=== PATIENT | male | born 1955 | race Caucasian/White ===

== ENCOUNTER 2021-09-18 07:27 | Inpatient (IN) | payer MEDICARE, OTHER ==
[2021-09-18] MEDS ORDERED: niCARdipine 25 MG/10 ML VIAL ONE (07:38)
[2021-09-18] MEDS ORDERED: Rocuronium Bromide 10 MG/ML (10ML VIAL) ONE (07:38)
[2021-09-18] MEDS ORDERED: Mannitol 12.5 GM/50 ML ONE (07:52)
[2021-09-18] MEDS ORDERED: manNITOL 20% 500 ML ONE (07:52)
[2021-09-18 07:56] LABS: #Basophils 0.1 thou/uL (0.0-0.2); #Eosinphils 0.1 thou/uL (0.0-0.7); #Lymphocytes 2.1 thou/uL (1.20-3.40); #Monocytes 0.5 thou/uL (0.11-0.59); #Neutrophils 9.4 thou/uL (1.40-6.50); %Basophils 0.8 % (0.0-1.0); %Lymphocytes 17.4 % (21.0-51.0); %Neutrophils 76.9 % (42.0-75.0); Mean Corpuscular HGB CONC 33.8 g/dL (32.0-36.0); Mean Corpuscular Hemoglobin 31.7 pg (27.0-31.0); Mean Corpuscular Volume 93.9 fL (78.0-98.0); Mean Platelet Volume 6.4 fL (7.4-10.4); Platelet Count 265 thou/uL (130-400); RBC Distribution Width 12.7 % (11.5-14.5); Red Blood Cell (RBC) Count 4.72 mill/uL (4.70-6.10); White Blood Cell (WBC) Count 12.2 thou/uL (4.8-10.8)
[2021-09-18] MEDS ORDERED: Midazolam HCl 5 mg/ml Vial ONE (07:59)
[2021-09-18] MEDS ORDERED: Fentanyl CADD 100 ML IV SCH ×2 (08:00→12:45)
[2021-09-18] MEDS ORDERED: ISOVUE-370 76%-LOCM 1 ML ONE ×2 (08:00)
[2021-09-18 08:08] LABS: PTT 27.5 sec (22.9-36.1); Prothrombin Time 13.3 sec (12.0-14.7)
[2021-09-18 08:10] LABS: Bilirubin Negative (Negative); Blood, Urine Negative (Negative); Clarity Clear (Clear); Glucose, Urine (Dipstick) 100 mg/dL (Negative); Ketone, Urine 10 mg/dL (Negative); Leukocyte Negative Leu/uL (Negative); Nitrite Negative (Negative); Protein, Urine (Dipstick) Negative (Neg-Trace); Urobilinogen Normal mg/dL (Less than 2); pH, Urine 5.5 (5.0-9.0)
[2021-09-18 08:16] LABS: Acetaminophen Less than 10.0 mcg/mL (10.0-30.0); Alcohol Less than 10 mg/dL (Less than 10); Lipase 67 U/L (8-78); Salicylate Less than 8.0 mg/dL (15.0-30.0)
[2021-09-18 08:19] LABS: Amphetamine Not Detected (NotDetected); Barbiturates Screen Not Detected (NotDetected); Benzodiazepine Screen Not Detected (NotDetected); Cocaine Metabolite Screen Not Detected (NotDetected); Methadone Not Detected (NotDetected); Methamphetamine Not Detected (NotDetected); Opiate Screen Not Detected (NotDetected); Oxycodone Screen Not Detected (NotDetected); Phencyclidine (PCP) Not Detected (NotDetected); THC/Cannabinoid Screen Not Detected (NotDetected); Tricyclic Screen Not Detected (NotDetected)
[2021-09-18] MEDS ORDERED: Ondansetron PF 4 MG/2 ML Vial IVP PRN (08:23)
[2021-09-18] MEDS ORDERED: Morphine 2 MG/ML VIAL SLOW IVP PRN (08:23)
[2021-09-18 08:26] LABS: Actual Bicarbonate (HCO3a) 24.2 mEq/L (22-28); Analyzer IN Cardio ER; Base Excess (BEa) -2.5 mEq/L (-2.0 to +3.0); Calcium, Ionized (arterial) 1.17 mmol/L (1.12-1.30); Potassium - ABG Lab 3.07 mmol/L (3.70-5.30); pH, Arterial 7.31 (7.35-7.45)
[2021-09-18 08:29] LABS: O2 Tension (PaO2), arterial 58.6 mmHg (> 80.0); Puncture Site RRA
[2021-09-18] MEDS ORDERED: niCARdipine 40MG In NaCl 40 MG/200 ML BAG IVPB SCH (08:30)
[2021-09-18] MEDS ORDERED: Mannitol 12.5 GM/50 ML SLOW IVP SCH (08:30)
[2021-09-18] MEDS ORDERED: ceFAZolin 2 GM/Dextrose 50 ML 2 GM in Premix Bag 1 BAG IVPB SCH (08:30)
[2021-09-18 08:31] LABS: ALT (SGPT) 19 U/L (8-55); AST (SGOT) 30 U/L (5-34); Albumin 4.4 g/dL (3.4-4.8); Alkaline Phosphatase 70 U/L (40-110); Anion Gap 19 mmol/L (10-20); BUN (Urea Nitrogen) 21 mg/dL (8.4-25.7); Bilirubin, Total 1.6 mg/dL (0.2-1.2); CK (CPK) 215 U/L (30-200); Calc. Creatinine Clearance 0 mL/min (70-130); Calcium 9.5 mg/dL (7.8-10.44); Carbon Dioxide 19 mmol/L (23-31); Chloride 105 mmol/L (98-107); Estimated GFR 97; Globulin 2.6 g/dL (2.4-3.5); Glucose 198 mg/dL (80-115); Potassium 3.5 mmol/L (3.5-5.1); Sodium 139 mmol/L (136-145)
[2021-09-18] MEDS ORDERED: Lidocaine 1% w/Epinephrine 1:100K 20 ML VIAL ONE (08:38)
[2021-09-18] MEDS ORDERED: Thrombin 5000 UNITS/5 ML VIAL ONE (08:38)
[2021-09-18] MEDS ORDERED: niCARdipine 25 MG in Sodium Chloride 0.9% 250 ML 250 ML IVPB SCH (09:00)
[2021-09-18] MEDS ORDERED: Dexamethasone 20 MG/5 ML VIAL ONE (09:29)
[2021-09-18] MEDS ORDERED: ePHEDrine 50 MG/ML VIAL ONE (09:29)
[2021-09-18] MEDS ORDERED: Phenylephrine 10 MG/ML VIAL ONE (09:29)
[2021-09-18] MEDS ORDERED: PROPOFOL 200 MG/20 ML VIAL ONE (09:29)
[2021-09-18] MEDS ORDERED: Vecuronium 10 MG VIAL ONE ×2 (09:29)
[2021-09-18 09:40] LABS: SARS-CoV-2 NAA Rapid Test Not Detected (NotDetected)
[2021-09-18] MEDS ORDERED: levETIRAcetam 500 MG/5 ML VIAL ONE (10:01)
[2021-09-18] MEDS ORDERED: fentaNYL Citrate/PF 100 MCG/2 ML SYRINGE ONE ×2 (10:04→11:05)
[2021-09-18] MEDS ORDERED: Propofol 1,000 MG/100 ML VIAL IV PRN ×2 (12:13→12:45)
[2021-09-18] MEDS ORDERED: Fentanyl 100 MCG/2 ML VIAL SLOW IVP PRN (12:14)
[2021-09-18] MEDS ORDERED: Propofol 1,000 MG/100 ML VIAL IV ONE (12:15)
[2021-09-18] MEDS ORDERED: Ventilator Sedation Protocol 1 EACH FS ONE (12:16)
[2021-09-18] MEDS: CEFAZOLIN 2 GM in Sodium Chloride 0.9% 100 ML IVPB SCH ×2 (12:25→17:11)
[2021-09-18] MEDS: Sodium Chloride 0.9% 1,000 ML IV SCH (12:25)
[2021-09-18] MEDS ORDERED: Midazolam HCl 2 mg/2 ml Vial SLOW IVP PRN (12:31)
[2021-09-18] MEDS ORDERED: Fentanyl BOLUS 250 ML IVPB PRN (12:45)
[2021-09-18] MEDS ORDERED: DISCONTINUE PREVIOUS NARCOTIC PAIN MEDICATIONS AND BENZODIAZEPINES FS SCH (12:45)
[2021-09-18] MEDS ORDERED: Morphine 4 MG/ML VIAL SLOW IVP PRN (12:45)
[2021-09-18] MEDS ORDERED: Propofol BOLUS 1,000 MG/100 ML VIAL IV PRN (12:45)
[2021-09-18 13:08] VITALS: BMI 25.0
[2021-09-18] MEDS ORDERED: HumaLOG 300 UNITS/3 ML VIAL SC PRN ×2 (13:20)
[2021-09-18] MEDS ORDERED: Dextrose 5% in Water 1,000 ML IV PRN (13:20)
[2021-09-18] MEDS ORDERED: Dextrose 50% Abboject 50 ML SYRINGE SLOW IVP PRN (13:20)
[2021-09-18 15:14] LABS: Actual Bicarbonate (HCO3a) 22.4 mEq/L (22-28); Base Excess (BEa) -1.5 mEq/L (-2.0 to +3.0); CO2 Tension 35.7 mmHg (35.0-45.0); Calcium, Ionized (arterial) 1.13 mmol/L (1.12-1.30); Hemoglobin (Hb) 15.1 g/dL (14.0-18.0); O2 Tension (PaO2), arterial 70.2 mmHg (> 80.0); Potassium - ABG Lab 4.05 mmol/L (3.70-5.30); pH, Arterial 7.42 (7.35-7.45)
[2021-09-18 15:15] LABS: Puncture Site LBA
[2021-09-18 15:16] LABS: ALV-art Gradient 170.375 mmHg (0-20)
[2021-09-18 18:33] LABS: Anion Gap 13 mmol/L (10-20); BUN (Urea Nitrogen) 16 mg/dL (8.4-25.7); Calc. Creatinine Clearance 94 mL/min (70-130); Calcium 8.9 mg/dL (7.8-10.44); Carbon Dioxide 27 mmol/L (23-31); Chloride 104 mmol/L (98-107); Estimated GFR 95; Glucose 149 mg/dL (80-115); Magnesium 1.7 mg/dL (1.6-2.6); Potassium 4.1 mmol/L (3.5-5.1); Sodium 140 mmol/L (136-145)
[2021-09-18] MEDS: Famotidine/PF 20 mg/2ml Vial SLOW IVP SCH (20:21)
[2021-09-18] MEDS: levETIRAcetam 500 MG/5 ML VIAL SLOW IVP SCH (20:21)
[2021-09-19] MEDS: CEFAZOLIN 2 GM in Sodium Chloride 0.9% 100 ML IVPB SCH (02:13)
[2021-09-19] MEDS: Sodium Chloride 0.9% 1,000 ML IV SCH (05:16)
[2021-09-19 05:30] LABS: #Lymphocytes 0.7 thou/uL (1.20-3.40); #Monocytes 0.8 thou/uL (0.11-0.59); #Neutrophils 12.7 thou/uL (1.40-6.50); %Eosinophils 0.1 % (0.0-10.0); %Lymphocytes 4.7 % (21.0-51.0); %Monocytes 5.6 % (0.0-10.0); %Neutrophils 89.6 % (42.0-75.0); Hemoglobin 13.7 g/dL (14.0-18.0); Mean Corpuscular HGB CONC 32.5 g/dL (32.0-36.0); Mean Corpuscular Hemoglobin 30.8 pg (27.0-31.0); Mean Corpuscular Volume 94.7 fL (78.0-98.0); Mean Platelet Volume 6.7 fL (7.4-10.4); Platelet Count 217 thou/uL (130-400); RBC Distribution Width 13.2 % (11.5-14.5); Red Blood Cell (RBC) Count 4.47 mill/uL (4.70-6.10); White Blood Cell (WBC) Count 14.2 thou/uL (4.8-10.8)
[2021-09-19 06:07] LABS: Hemoglobin A1c 5.5 % (4.0-6.0)
[2021-09-19 06:42] LABS: Anion Gap 14 mmol/L (10-20); BUN (Urea Nitrogen) 20 mg/dL (8.4-25.7); Calc. Creatinine Clearance 93 mL/min (70-130); Calcium 8.9 mg/dL (7.8-10.44); Carbon Dioxide 25 mmol/L (23-31); Cardiac Risk 3.5 (Less than 4.5); Chloride 105 mmol/L (98-107); Cholesterol 188 mg/dl (< 200 Desired); Estimated GFR 94; Glucose 144 mg/dL (80-115); HDL Cholesterol 54 mg/dL (>60 Neg Risk); LDL Cholesterol, Calculated 124 mg/dL; Potassium 3.8 mmol/L (3.5-5.1); Sodium 140 mmol/L (136-145); Triglycerides 51 mg/dL (Less than 150)
[2021-09-19 07:05] LABS: Thyroid Stimulating Hormone 0.77 uIU/mL (0.35-4.94)
[2021-09-19] MEDS: Famotidine/PF 20 mg/2ml Vial SLOW IVP SCH (09:15)
[2021-09-19] MEDS: levETIRAcetam 500 MG/5 ML VIAL SLOW IVP SCH (09:15)
[2021-09-19] MEDS: Midazolam HCl 2 mg/2 ml Vial SLOW IVP PRN ×2 (10:26→12:49)
[2021-09-19] MEDS: Morphine 2 MG/ML VIAL SLOW IVP PRN ×3 (10:26→21:48)
[2021-09-20] MEDS: Morphine 2 MG/ML VIAL SLOW IVP PRN ×4 (02:36→11:26)
[2021-09-20] MEDS: Acetaminophen 650 MG Suppository PR PRN ×2 (09:43→20:30)
[2021-09-20 20:30] VITALS: TEMP 102.7
[2021-09-20 20:33] VITALS: BP 106/68
== END 2021-09-20 23:05 | disposition expired | DRG 23 ==
LOC: ERS 07:27 → SDC 09:29 → CCU 11:30 → T4-A 09-19 17:45
PROVIDERS: ADMIT Surgery; ATTEND Surgery
PROC: 00C70ZZ Extirpation of Matter from Cerebral Hemisphere, Open Approach (ICD-10-PCS; principal; 2021-09-18)
PROC: 5A1945Z Respiratory Ventilation, 24-96 Consecutive Hours (ICD-10-PCS; 2021-09-18)
PROC: 02HV33Z Insertion of Infusion Device into Superior Vena Cava, Percutaneous Approach (ICD-10-PCS; 2021-09-18)
PROC: 0BH18EZ Insertion of Endotracheal Airway into Trachea, Via Natural or Artificial Opening Endoscopic (ICD-10-PCS; 2021-09-18)
PROC: 0D9670Z Drainage of Stomach with Drainage Device, Via Natural or Artificial Opening (ICD-10-PCS; 2021-09-18)
DX: I61.1 Nontraumatic intracerebral hemorrhage in hemisphere, cortical (principal); G93.5 Compression of brain; J96.01 Acute respiratory failure with hypoxia; J96.02 Acute respiratory failure with hypercapnia; R47.01 Aphasia; G81.14 Spastic hemiplegia affecting left nondominant side; Z66 Do not resuscitate; Z51.5 Encounter for palliative care; Z20.822 Contact with and (suspected) exposure to COVID-19; R29.715 NIHSS score 15; F03.90 Unspecified dementia, unspecified severity, without behavioral disturbance, psychotic disturbance, mood disturbance, and anxiety; R13.10 Dysphagia, unspecified; I10 Essential (primary) hypertension; R40.20 Unspecified coma; G93.89 Other specified disorders of brain; E78.5 Hyperlipidemia, unspecified; Z87.09 Personal history of other diseases of the respiratory system; Z87.891 Personal history of nicotine dependence; Z98.890 Other specified postprocedural states; Z78.1 Physical restraint status; Z80.9 Family history of malignant neoplasm, unspecified; Z83.3 Family history of diabetes mellitus
CPT/HCPCS: 31500; 36416; 36556; 36600; 51702; 70450; 70496; 70498; 71045; 80048; 80053; 80061; 80306; 80307; 81003; 82550; 82607; 82746; 82805; 83036; 83690; 83735; 83880; 84443; 84484; 85025; 85610; 85730; 93005; 93010; 94002; 94003; 96365; 96366; 96374; 96375; C1713; J0690; J1100; J1953; J2150; J2250; J2270; J2370; J2704; J3010; J3490; J7050; J7799; Q9966; S0028; U0002